=== PATIENT | female | born 1950 | race Caucasian/White ===

== ENCOUNTER → 2017-03-11 | Outpatient (CLI) | payer OTHER ==
[2017-03-11 15:12] LABS: BASOPHILS # (AUTO) 0.02 10*3/UL; BASOPHILS % (AUTO) 0.3 % (0-1); EOSINOPHILS # (AUTO) 0.11 10*3/UL; EOSINOPHILS % (AUTO) 1.4 % (0-8); HEMATOCRIT 43.5 % (37.0-47.0); HEMOGLOBIN 14.1 g/dL (12.0-16.0); MEAN CORPUSCULAR HEMOGLOBIN 29.3 PG (27-31); MEAN CORPUSCULAR HGB CONC 32.4 g/dL (33-37); MEAN CORPUSCULAR VOLUME 90.4 FL (81-99); MEAN PLATELET VOLUME 10.7 FL (7.4-12.2); MONOCYTES # (AUTO) 0.59 10*3/UL (0.3-0.8); MONOCYTES % (AUTO) 7.6 % (5-15); NEUTROPHILS # (AUTO) 4.76 10*3/UL; NEUTROPHILS % (AUTO) 60.9 % (50-80); RED BLOOD COUNT 4.81 10^6/uL (4.20-5.40)
[2017-03-11 15:16] LABS: PLATELET MORPHOLOGY COMMENT NORMAL MORPHOLOGY (NORM); RBC MORPHOLOGY COMMENT NORMAL MORPHOLOGY (NORM); WBC MORPHOLOGY COMMENT NORMAL MORPHOLOGY (NORM)
[2017-03-11 15:31] LABS: BLOOD UREA NITROGEN 18 mg/dL (7-22); CALCIUM 9.8 mg/dL (8.7-10.7); EST GLOMERULAR FILTRATION > 60 (>60 ml/min/1.73m(2)); SERUM ALBUMIN 4.3 g/dL (3.5-4.8)
== END ==
LOC: MOB LAB 13:35
PROVIDERS: ATTEND Family Medicine
DX: R10.31 Right lower quadrant pain (principal)
CPT/HCPCS: 36415; 80053; 85025; G0463; 99214

== ENCOUNTER → 2017-03-11 | Outpatient (CLI) | payer OTHER ==
[2017-03-11 19:02] LABS: BILIRUBIN,URINE NEGATIVE (NEG); CLARITY,URINE CLEAR (CLEAR); COLOR,URINE YELLOW; GLUCOSE, URINE (UA) NEGATIVE (NEG); NITRATE,URINE NEGATIVE (NEG); OCCULT BLOOD,URINE NEGATIVE (NEG); PROTEIN,URINE NEGATIVE (NEG); SQUAMOUS EPITHELIAL CELL,UR FEW; URINE SAMPLE TYPE VOID
== END ==
LOC: LAB 18:41
PROVIDERS: ATTEND Family Medicine
DX: R10.31 Right lower quadrant pain (principal)
CPT/HCPCS: 81001

== ENCOUNTER 2017-03-13 14:23 | Emergency (ER) | payer OTHER ==
[2017-03-13 14:34] VITALS: RESP 14; TEMP 97.4
--- NOTE | 2017-03-13 14:57 | PDOC ---
Abdomen/Flank HPI - General Chief Complaint: Abdomen Pain Stated Complaint: Abdominal Pain Date Seen by Provider: 03/13/17 Time Seen by Provider: 14:52 Source: POSITIVE: Patient Exam Limitations: POSITIVE: No limitations Nurse's Notes Reviewed & Considered: Yes - History of Present Illness Initial Comments: Patient comes in today with chief complaint of abdominal pain. Patient with ongoing abdominal pain for approximately one week. Her pain is in the epigastrium with radiation into her chest. She has associated nausea but no vomiting, she does have shortness of breath. A CT of her abdomen was obtained this morning, and laboratory studies were obtained on the , by her primary care physician. Review OF CT scan report shows no acute intra-abdominal or intrapelvic abnormality to identify the patient's source of pain. Review of laboratory findings indicate unremarkable labs. Patient denies any dysuria or hematuria. Patient states that her pain initially began in her right flank, then radiated into her right upper quadrant. She states the pain feels very similar to the pain she had when she had gallstones. She has had a history of cholecystectomy and appendectomy. Presently the pain is centered in her epigastrium and radiates to her bilateral flanks. Body Location Affected: REPORTS: Abdomen Timing: REPORTS: Constant Duration: <1 week Severity: Moderate Quality: REPORTS: Cramping, "Pain", Stabbing, Throbbing Abdominal Pain Onset Location: REPORTS: Epigastric Abdominal Pain Radiation: REPORTS: RUQ, LUQ, Periumbilical Context: REPORTS: None Modifying Factors: improves with: Nothing Associated Symptoms: REPORTS: Nausea Similar Symptoms Previously: Yes Recent Care Received: REPORTS: Recently Seen Any Prior Injuries Related to Current Complaint?: No - Patient Home Medications Home Medications: Home Medications Multivitamins W-Minerals/Lut [Centrum Silver Tablet] 1 tab ORAL QD tab Aspirin [Aspir 81] 81 mg ORAL QD tab 09/18/12 Calcium Carbonate/Vitamin D3 [Calcium 600-Vit D3 200 Tablet] 1 each PO QD Estrogens, Conj Vaginal Cream [Premarin Vaginal Cream] 1 gm TOPICAL DAILY #1 tube 01/09/16 Losartan Potassium 100 mg ORAL QD #30 tab 08/01/16 - Patient Allergies Allergies/Adverse Reactions: Allergies Allergy/AdvReac Type Severity Reaction Status Date / Time Sulfa (Sulfonamide Allergy Intermediate HIVES Verified 03/13/17 14:26 Antibiotics) codeine AdvReac Intermediate NAUSEA Verified 03/13/17 14:26 Past Medical History - heen HEENT History: Denies History Cardiovascular History: Hypertension, Hyperlipidemia Respiratory History: Denies History Gastrointestinal History: GERD, Peptic Ulcer Disease Additional Gastrointestinal History: RECTAL BLEEDING Genitourinary History: Denies History Endocrine History: Denies History Musculoskeletal History: Denies History Prosthesis or Implant: No Neurological History: Denies History Blood Disorders: Denies History Psychiatric History: Denies History History of Sexually Transmitted Diseases: No Female Reproductive History: Denies History Obstetrical History: Denies History Cancer History: Denies History In Past Year Been Physically Harmed or Verbally Threatened: No History of MDRO: No History of Other Communicable Diseases: No Tobacco Use: Never Smoker Alcohol Use: None Substance Use Type: None Previous Surgical History: Yes Type / Date of Surgery: T&A/ APPY/ ANDREA/ COLONOSCOPY/ TUBAL Anesthesia Reactions: No Malignant Hyperthermia: No Significant Family History: No pertinent family hx ROS - Limitations ROS Limitations: No Limitations Constitution: REPORTS: Denies Symptoms Cardiovascular: REPORTS: Denies Cardiac Symptoms Respiratory: REPORTS: Denies Resp Symptoms Neurological: REPORTS: Denies Neuro Symptoms Gastrointestinal: REPORTS: Abdominal Pain, Nausea Endocrine: REPORTS: Denies Symptoms Musculoskeletal: REPORTS: Denies MS Symptoms Genitourinary: REPORTS: Denies Symptoms Eyes: REPORTS: Denies Symptoms ENT: REPORTS: Denies Symptoms Skin: REPORTS: Denies Skin Symptoms Lympathic: REPORTS: Denies Lympathic Symptoms Immunologic: POSITIVE: Denies Symptoms Psychiatric: POSITIVE: Denies Psych Symptoms Abdominal/Flank Pain PE - General Appearance General Appearance: POSITIVE: Alert, Cooperative, No Evidence of Trauma, Moderate Distress - HEENT HEENT: POSITIVE: Head Inspection Nml, Eyes Inspection Nml, Ears Inspection Nml, Nose Inspection Nml, Oral/Dental Inspect. Nml, Pharynx Inspect. Nml, PERRL, EOMI - Neck Neck: POSITIVE: Normal Inspection, No Apparent Injury - Respiratory Respiratory: POSITIVE: No Respiratory Distress, Breath Sounds Normal, Chest Non- Tender - Cardiovascular Cardiovascular: POSITIVE: Regular Rate and Rhythm, Heart Sounds Normal - Chest Chest: POSITIVE: Non Tender - Abdomen Abdomen: Soft: (All Quadrants), Normal Bowel Sounds: (All Quadrants), Tenderness Noted: (RUQ), (LUQ) - Genital / Rectal Pelvic: POSITIVE: External Exam Normal - Back Back: POSITIVE: Normal Inspection (No CVA tenderness.) - Skin Skin: POSITIVE: Intact, Normal For Race, Warm, Dry, No Rash - Extremities Extremity: Non-Tender: (All Extremities), Normal ROM: (All Extremities), Normal Inspection: (All Extremities) - Neurological Neurological: POSITIVE: Affect Apporpriate, Oriented X3, Motor Normal, Sensation Normal - Psychological Psychiatric: POSITIVE: Affect Appropriate, Mood Appropriate Abdomen Progress - Results Reviewed by me Xrays/CTs/US Reviewed by me: Yes Discussed with Radiologist: Yes Lab Results Reviewed: Yes Lab Results:: Laboratory Results 03/13/17 03/13/17 03/13/17 Range/Units 14:25 15:17 15:20 WBC 6.40 (4.8-10.8) 10^3/uL RBC 4.82 (4.20-5.40) 10^6/uL Hgb 14.2 (12.0-16.0) g/dL Hct 42.6 (37.0-47.0) % MCV 88.4 (81-99) FL MCH 29.5 (27-31) PG MCHC 33.3 (33-37) g/dL RDW Std Deviation 43.0 (39-50) fL RDW Coeff of Adiel 13.7 (11.5-14.5) % Plt Count 183 (140-350) 10*3/uL MPV 9.9 (7.4-12.2) FL Immature Gran % (Auto) 0.3 (0-5) % Neut % (Auto) 63.7 (50-80) % Lymph % (Auto) 24.1 (10-50) % [place] % (Auto) 10.0 (5-15) % Eos % (Auto) 1.4 (0-8) % Baso % (Auto) 0.5 (0-1) % Immature Gran # (Auto) 0.02 10*3/UL Neut # (Auto) 4.08 10*3/UL Lymph # (Auto) 1.54 10*3/uL [place] # (Auto) 0.64 (0.3-0.8) 10*3/UL Eos # (Auto) 0.09 10*3/UL Baso # (Auto) 0.03 10*3/UL WBC Morphology Comment Normal morphology (NORM) Plt Morphology Comment Normal morphology (NORM) RBC Morph Comment Normal morphology (NORM) D-Dimer 0.75 H (0.00-0.59) mg/L VBG pH 7.51 H (7.32-7.42) VBG pCO2 21 L (45-55) mmHg VBG HCO3 17 L (22-26) mmol/L VBG Base Excess -6 L (-2-2) MMOL/L Sodium 140 (135-145) meq/L Potassium 4.2 (3.8-5.2) meq/L Chloride 106 (98-112) meq/L Carbon Dioxide 20 L (23-33) meq/L Anion Gap 14 (5-20) BUN 18 (7-22) mg/dL Creatinine 0.8 (0.50-1.20) mg/dL Estimated GFR > 60 (>60 ml/min/1.73m(2)) BUN/Creatinine Ratio 22.50 H (6-20) Glucose 86 (78-110) mg/dL Calculated Osmolality 290.0 (267-292) mOsm/kg Lactic Acid < 0.5 L (0.70-2.10) MMOL/L Calcium 9.6 (8.7-10.7) mg/dL Magnesium 1.9 (1.6-2.4) mg/dL Total Bilirubin 0.9 (0.3-1.2) mg/dL AST 38 (8-39) IU/L ALT 35 (9-52) IU/L Alkaline Phosphatase 84 (38-126) IU/L Total Creatine Kinase 141 H (30-136) IU/L Troponin I < 0.012 (< 0.040) ng/mL Total Protein 7.9 (6.1-8.0) g/dL Albumin 4.5 (3.5-4.8) g/dL Globulin 3.4 (2.50-4.10) g/dL Albumin/Globulin Ratio 1.30 (1.3-2.0) mg/g TSH 3.05 (0.2700-4.2000) uIU/mL Free T4 1.49 (0.93-1.71) ng/dL Ur Collection Type Urine Color Urine Clarity (CLEAR) Urine pH (5.0-8.5) Ur Specific [place] (1.005-1.030) Urine Protein (NEG) mg/dl Urine Glucose (UA) (NEG) mg/dL Urine Ketones (NEG) Urine Occult Blood (NEG) Urine Nitrate (NEG) Urine Bilirubin (NEG) Urine Urobilinogen (0.2) EU/dL Ur Leukocyte Esterase (NEG) Ur Culture Indicated? 03/13/17 Range/Units 17:58 WBC (4.8-10.8) 10^3/uL RBC (4.20-5.40) 10^6/uL Hgb (12.0-16.0) g/dL Hct (37.0-47.0) % MCV (81-99) FL MCH (27-31) PG MCHC (33-37) g/dL RDW Std Deviation (39-50) fL RDW Coeff of Adiel (11.5-14.5) % Plt Count (140-350) 10*3/uL MPV (7.4-12.2) FL Immature Gran % (Auto) (0-5) % Neut % (Auto) (50-80) % Lymph % (Auto) (10-50) % [place] % (Auto) (5-15) % Eos % (Auto) (0-8) % Baso % (Auto) (0-1) % Immature Gran # (Auto) 10*3/UL Neut # (Auto) 10*3/UL Lymph # (Auto) 10*3/uL [place] # (Auto) (0.3-0.8) 10*3/UL Eos # (Auto) 10*3/UL Baso # (Auto) 10*3/UL WBC Morphology Comment (NORM) Plt Morphology Comment (NORM) RBC Morph Comment (NORM) D-Dimer (0.00-0.59) mg/L VBG pH (7.32-7.42) VBG pCO2 (45-55) mmHg VBG HCO3 (22-26) mmol/L VBG Base Excess (-2-2) MMOL/L Sodium (135-145) meq/L Potassium (3.8-5.2) meq/L Chloride (98-112) meq/L Carbon Dioxide (23-33) meq/L Anion Gap (5-20) BUN (7-22) mg/dL Creatinine (0.50-1.20) mg/dL Estimated GFR (>60 ml/min/1.73m(2)) BUN/Creatinine Ratio (6-20) Glucose (78-110) mg/dL Calculated Osmolality (267-292) mOsm/kg Lactic Acid (0.70-2.10) MMOL/L Calcium (8.7-10.7) mg/dL Magnesium (1.6-2.4) mg/dL Total Bilirubin (0.3-1.2) mg/dL AST (8-39) IU/L ALT (9-52) IU/L Alkaline Phosphatase (38-126) IU/L Total Creatine Kinase (30-136) IU/L Troponin I (< 0.040) ng/mL Total Protein (6.1-8.0) g/dL Albumin (3.5-4.8) g/dL Globulin (2.50-4.10) g/dL Albumin/Globulin Ratio (1.3-2.0) mg/g TSH (0.2700-4.2000) uIU/mL Free T4 (0.93-1.71) ng/dL Ur Collection Type Void Urine Color Yellow Urine Clarity Clear (CLEAR) Urine pH 5.5 (5.0-8.5) Ur Specific [place] 1.010 (1.005-1.030) Urine Protein Negative (NEG) mg/dl Urine Glucose (UA) Negative (NEG) mg/dL Urine Ketones 40 (NEG) Urine Occult Blood Negative (NEG) Urine Nitrate Negative (NEG) Urine Bilirubin Negative (NEG) Urine Urobilinogen 2.0 (0.2) EU/dL Ur Leukocyte Esterase Negative (NEG) Ur Culture Indicated? Culture not set EKG Interpreted/Reviewed By Me:: Yes EKG Interpretation:: POSITIVE: Normal Sinus Rhythm - Patient's Progress Pain Medication Addressed: POSITIVE: Yes Re-examine Time: 19:50 Re-Examine Comment: Patient states her abdominal pain and nausea have resolved. Status: POSITIVE: Improved MDM / ED Course: Patient was examined, an IV started, blood drawn and sent to the lab for studies , radiographic examinations obtained. EKG per my interpretation showed a normal sinus rhythm. Patient received a liter of normal saline 2, Zofran for nausea, morphine sulfate for pain. During her time here in the emergency room she significantly improved. During the first attempt at CT scan of her chest to rule out pulmonary emboli the elbow on the IV was unable to sustain the pressure of the dye injection and only approximately 30 mL of dye was injected. This was insufficient to obtain an adequate PE protocol study. Per Dr. Sarabjit Massey advised we waited 2 hours and patient received a second liter of normal saline. She was then taken back to the radiographic suite and received a second CT scan for PE protocol which was adequate. Findings: CT scan shows no PE present. CBC is unremarkable. Comp [place] metabolic panels unremarkable. Urinalysis is negative. Troponin is negative. D-dimer is positive at 0.075. Assessment: Abdominal pain resolved. Plan: Discharge home return if fevers, increasing pain, blood in stool or vomitus. Follow-up with primary care physician. - Consult Counseled: POSITIVE: Patient, Family, RE: Lab Results, RE: Radiology Results, RE : DX, RE: Need for F/U - CP/AMI Quality Measure Initiative: CP/AMI: POSITIVE: EKG Patient Care Time - Estimated PCT Patient Care Time (In Minutes): 45 Vital Signs - Recent Vital Signs Vital Signs: Vital Signs (Last 8 hours) Temp Pulse Resp BP Pulse Ox 03/13/17 18:25 96 03/13/17 14:24 97.4 F 75 14 156/79 95 - VS Reviewed Vital Signs Reviewed: Yes Discharge Clinical Impression: Abdominal pain Discharge Disposition: Discharged to Home Condition: Stable Patient Instructions Given at Discharge: Acute Abdominal Pain (ED)
[2017-03-13] MEDS: ONDANSETRON 4 MG/2 ML VIAL IVP ONE ×2 (15:04→19:07)
[2017-03-13] MEDS ORDERED: Sodium Chloride 0.9% 1,000 ML PRIMARY IV ONE ×2 (15:04→16:42)
[2017-03-13] MEDS: MORPHINE SULFATE 4 MG/1 ML IVP ONE ×2 (15:04→18:35)
[2017-03-13 15:11] LABS: BASOPHILS % (AUTO) 0.5 % (0-1); MEAN CORPUSCULAR VOLUME 88.4 FL (81-99)
[2017-03-13 15:19] LABS: BASOPHILS # (AUTO) 0.03 10*3/UL; BLOOD UREA NITROGEN 18 mg/dL (7-22); CALCIUM 9.6 mg/dL (8.7-10.7); EOSINOPHILS # (AUTO) 0.09 10*3/UL; EOSINOPHILS % (AUTO) 1.4 % (0-8); EST GLOMERULAR FILTRATION > 60 (>60 ml/min/1.73m(2)); HEMATOCRIT 42.6 % (37.0-47.0); HEMOGLOBIN 14.2 g/dL (12.0-16.0); LYMPHOCYTES # (AUTO) 1.54 10*3/uL; MAGNESIUM 1.9 mg/dL (1.6-2.4); MEAN CORPUSCULAR HEMOGLOBIN 29.5 PG (27-31); MEAN CORPUSCULAR HGB CONC 33.3 g/dL (33-37); MEAN PLATELET VOLUME 9.9 FL (7.4-12.2); MONOCYTES # (AUTO) 0.64 10*3/UL (0.3-0.8); NEUTROPHILS # (AUTO) 4.08 10*3/UL; NEUTROPHILS % (AUTO) 63.7 % (50-80); RED BLOOD COUNT 4.82 10^6/uL (4.20-5.40); SERUM ALBUMIN 4.5 g/dL (3.5-4.8)
[2017-03-13 15:20] LABS: PLATELET MORPHOLOGY COMMENT NORMAL MORPHOLOGY (NORM); RBC MORPHOLOGY COMMENT NORMAL MORPHOLOGY (NORM); WBC MORPHOLOGY COMMENT NORMAL MORPHOLOGY (NORM)
[2017-03-13 15:29] LABS: VENOUS PH 7.51 (7.32-7.42)
[2017-03-13 15:35] LABS: FREE T4 (FREE THYROXINE) 1.49 ng/dL (0.93-1.71)
--- NOTE | 2017-03-13 16:04 | DI ---
AP CHEST X-RAY, 03/13/2017 3:04 PM : Clinical History: Chest pain. Previous Exam: 10/20/2009. There is no acute soft tissue or bony abnormality. Heart size is normal. Lungs are clear. Mediastinal structures are normal. There are no pulmonary nodules. Reading: Normal chest x-ray. There has been no interval change.
[2017-03-13 18:01] LABS: BILIRUBIN,URINE NEGATIVE (NEG); COLOR,URINE YELLOW; GLUCOSE, URINE (UA) NEGATIVE (NEG); NITRATE,URINE NEGATIVE (NEG); OCCULT BLOOD,URINE NEGATIVE (NEG); PH,URINE 5.5 (5.0-8.5); PROTEIN,URINE NEGATIVE (NEG)
[2017-03-13 18:02] LABS: CLARITY,URINE CLEAR (CLEAR); URINE SAMPLE TYPE VOID
--- NOTE | 2017-03-13 19:23 | DI ---
CT ANGIOGRAM OF THE CHEST, 03/13/2017 3:58 PM : Clinical History: Shortness of breath. Elevated D-dimer test. Epigastric pain. Previous Exam: None at this facility. Scans are performed from the base of the neck to the lower lung bases following IV administration of 65 mL of Isovue 300. Proprietary automated bolus tracking software was not used to verify the timing of the injection. Approximately 2.5 hours earlier, the patient did receive an injection of an estimat ed 30 mL of Isovue 300 with the remaining contrast was not injected because of leakage at the IV site . The base of the neck and thoracic inlet are normal. There are no abnormal axillary, supraclavicular, mediastinal, or hilar nodes. The heart is normal. Small calcifications are present in the proximal th ird of the LAD. The pulmonary arteries are normal. There is no pulmonary arterial hypertension. There is no evidence of pulmonary embolism or pulmonary infarction. There are no acute infiltrates or effu sions. There is a 3 mm noncalcified nodule that is pleural-based and is in the apical posterior segme nt of the left upper lobe abutting the superior margin of the left major fissure. READIN. Normal CTA of the chest. There are no pulmonary emboli or pulmonary infarcts. 2. There is a 3 mm noncalcified nodule located in the posterior aspect of the left upper lobe. If th is patient is considered to be of low risk for developing lung cancer, then no followup is required. If this patient is considered to be of high-risk for developing lung cancer, then a repeat noncontras t CT scan in 12 months is recommended to monitor this lesion.
[2017-03-13] MEDS ORDERED: HYDROcodone-APAP 5 MG -325 MG TABLET PO ONE (19:54)
--- NOTE | 2017-03-14 00:31 | EKG ---
[address] [address] Measurements Intervals [place] Rate: 84 P: 25 SC: 150 QRS: 1 QRSD: 103 T: 14 QT: 383 QTc: 424 Interpretive Statements SINUS RHYTHM MINIMAL ST DEPRESSION [0.025+ mV ST DEPRESSION] No previous ECG available for comparison Electronically Signed On 03-14-17 08:13:56 MDT by Adrian More MD [email or web address]
== END 2017-03-13 20:04 | disposition home or self-care (01) ==
LOC: ER 14:23
DX: R10.13 Epigastric pain (principal); R07.9 Chest pain, unspecified; R06.02 Shortness of breath; R11.0 Nausea
CPT/HCPCS: 36415; 71010; 71275; 74176; 80053; 81003; 82550; 82803; 83605; 83735; 84439; 84443; 84484; 85025; 85379; 93005; 93010; 96361; 96374; 96375; 96376; 99284; J2270; J2405; J7030

== ENCOUNTER → 2017-03-13 | Outpatient (CLI) | payer OTHER ==
--- NOTE | 2017-03-13 09:32 | DI ---
CT ABDOMEN SCAN WITHOUT IV CONTRAST, 03/13/2017 8:44 AM : Clinical History: Right lower quadrant abdominal pain. Previous Exam: None at this facility. Scans are performed from the lower lung bases through the liver and kidneys without IV contrast. Sagi ttal and coronal reformatted images are generated. There is an irregularly shaped noncalcified roughly 7 mm nodule located in the lateral segment of the right middle lobe. There is a punctate calcification in the posterior aspect of the right lobe of th e liver and this does appear to be within the parenchyma. Liver calcifications can be seen with prior exposure to either TB or histoplasmosis. The liver itself is normal. The patient is status post chol ecystectomy. There is no intrahepatic or extrahepatic biliary dilatation. Both adrenal glands and the pancreas are normal. There is mild splenomegaly. Both kidneys are normal in size, shape, position an d contour. There is no hydronephrosis or hydroureter. No renal or ureteral calculi are present. There are no abnormal retrocrural or periaortic nodes. No ascites is present. READIN. There is mild splenomegaly. The CT scan of the abdomen is otherwise normal. 2. There is an irregularly shaped noncalcified 7 mm nodule in the lateral segment of the right middl e lobe. If this patient is considered to be low risk for developing lung cancer, then a followup CT s can of the chest with IV contrast in 6 months is recommended. If this patient is considered to be hig h-risk for developing lung cancer, then a followup CT scan with IV contrast in 3 months is recommende d. CT PELVIS SCAN WITHOUT IV CONTRAST, 03/13/2017 8:44 AM : Clinical History: See above. Previous Exam: None. Scans are performed from the inferior margin of the liver and kidneys to the symphysis pubis without IV contrast. There is no free fluid collection and there is no adenopathy. 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 The appendix is not visualized but there is no inflammatory mass eith er in the cecum or in the right lower quadrant. The small bowel, terminal ileum, and ileocecal valve are normal. The colon is also normal. There are no hernias. The uterus and both ovaries are atrophic but normal. READING: Normal CT pelvis scan.
== END ==
LOC: CT 08:40
PROVIDERS: ATTEND Family Medicine
DX: R10.31 Right lower quadrant pain (principal)
CPT/HCPCS: 74176

== ENCOUNTER → 2017-03-14 | Outpatient (CLI) | payer OTHER | LOC: MMPC 09:00 | PROVIDERS: ATTEND Physician Assistant Medical | DX: B02.9 Zoster without complications (principal) | CPT/HCPCS: 99213; G0463 ==

== ENCOUNTER → 2017-04-25 | Outpatient (CLI) | payer OTHER | LOC: MMPC 09:00 | PROVIDERS: ATTEND Family Medicine | DX: B02.23 Postherpetic polyneuropathy (principal) | CPT/HCPCS: 99213; G0463 ==

== ENCOUNTER → 2017-06-13 | Outpatient (CLI) | payer OTHER ==
--- NOTE | 2017-06-13 11:13 | DI ---
PA /LATERAL CHEST X-RAY, 06/13/2017 10:04 AM : Clinical History: Followup lung nodule. Previous Exam: 10/20/2009. There is no acute soft tissue or bony abnormality. Heart size is normal. Lungs are clear. Mediastinal structures are normal. There are no pulmonary nodules visible. The lesion seen on the CT scan is too small to be visible on routine chest x-rays. Reading: Normal chest x-ray.
== END ==
LOC: RAD 10:00
PROVIDERS: ATTEND Family Medicine
DX: Z87.09 Personal history of other diseases of the respiratory system (principal)
CPT/HCPCS: 71020